=== PATIENT | female | born 1965 | race Caucasian/White ===

== ENCOUNTER 2024-12-11 04:06 | Inpatient (IN) | payer OTHER, SELFPAY ==
[2024-12-10 21:55] VITALS: BMI 31.9
[2024-12-10 22:00] VITALS: BP 158/96
--- NOTE | 2024-12-10 22:14 | ED.GENMED ---
History of Present Illness
General
Chief Complaint: Abdominal Pain
Source: patient and spouse
Exam Limitations: none
Time Seen by Provider: 12/10/24 21:59
Nursing documentation reviewed up to this point in time: agreed with
History of Present Illness
History of Present Illness:
59-year-old female presents emergency department due to lower abdominal pain that began earlier this afternoon. Her pain got worse and she had a near syncope episode in triage and began vomiting. She has a history of diverticulitis with a
diverticular perforation. Colectomy in the past with reversal.
Past History
Past History
ED Past Medical History: Other (Diverticulitis)
ED Past Surgical History: Bowel resection
Social History
Tobacco: Non-smoker
Personal:
Living: with family
Employment: Employed
Family History
Family History: Other (Noncontributory)
Review of Systems
Review of Systems
Allergies reviewed?: Yes
All Other Systems: Not applicable
Constitutional: Reports no symptoms
EENT: Reports no symptoms
Respiratory: Reports no symptoms
Cardiac: Reports syncope
ABD/GI: Reports abdominal pain and vomiting
: Reports no symptoms
Musculoskeletal: Reports no symptoms
Skin: Reports no symptoms
Neurological: Reports no symptoms
Endocrine: Reports no symptoms
Hematologic/Lymphatic: Reports no symptoms
Psychiatric: Reports no symptoms
Phy Exam
Physical Exam
Physical Exam:
Physical Exam
General: no apparent distress, not acutely ill
Neck: supple. no meningeal signs. normal posterior pharynx
Heart: s1/s2 regular rate and rhythm, no murmur. equal radial
pulses.
HEENT: Pupils equal round reactive to light, EOMI
Lungs: no acute respiratory distress. clear bilaterally
Abdomen: normal bowel sounds. Bilateral lower abdominal tenderness. no CVAT
Neuro: alert and oriented. no focal neurological deficits cranial nerves II through XII intact
Skin: no rash
Psychiatric: well kept. interactive and cooperative
Extremities: no edema. no calf tenderness. negative homans. good distal pulses
Course
Orders/Labs/Results
Orders:
Orders
12/10/24 22:01
Electrocardiogram (*1) Stat
Reason for Study: Abdominal Pain
Cardiac Monitoring- Treatment ONCE
EKG- Treatment ONCE
IV Insert/Care/Rem.- Treatment PRN
Urinalysis Reflex To Culture Urgent
Date Specimen was Collected: 12/11/24
Time Specimen was Collected: 00:27
Pulse Ox/cont/shift [RESP] Stat
Quantity: 1
12/10/24 22:09
Complete Blood Count/With Diff Urgent
Comprehensive Metabolic Panel Urgent
Lipase Urgent
12/10/24 22:13
Iohexol [Omnipaque] See Protocol PO NOW STA
12/10/24 22:15
Morphine Sulfate 4 mg IV NOW STA
Ondansetron Injectable [Zofran] 4 mg IV NOW STA
12/11/24 00:28
Urine Microscopic Reflex Cult Urgent
12/11/24 00:30
CT Abd/pel W Iv And Oral Contr Urgent
Reason For Exam: B/l lr quad abd pain, hx diverticulitis, bowel r/s
12/11/24 00:35
HYDROmorphone [Dilaudid] 0.5 mg IV NOW STA
12/11/24 02:12
HYDROmorphone [Dilaudid] 1 mg IV NOW STA
12/11/24 02:21
NG Tube [GI tube insertion- Treatment] ONCE
Abnormal Lab Results
12/10/24 12/11/24
22:09 00:28
WBC 11.7 H 10^3/uL
(4.8-10.8)
MCH 32.2 H pg
(27.0-31.0)
Abs Immat Gran (auto) 0.1 H 10^3/uL
(0-0.05)
Absolute Neuts (auto) 8.8 H 10^3/uL
(1.4-6.5)
Neutrophils % 75.6 H %
(42.2-75.2)
Lymphocytes % 16.9 L %
(20.5-51.1)
Glucose 158 H mg/dl
(70-99)
Ur Occult Blood Reflex 1+ A
(Negative)
Urine RBC 3-6 A /HPF
(0-2)
Urine Albumin (Reflex) 1+ A
(Neg - Trace)
12/10/24 22:09
12/10/24 22:09
Vital Signs
Initial and Last Documented VS:
Initial Vital Signs
Temp Pulse Resp Pulse Ox
97.8 F 78 16 98
12/10/24 21:40 12/10/24 21:40 12/10/24 21:40 12/10/24 21:40
Last Documented Vital Signs
Temp Pulse Resp BP Pulse Ox
97.8 F 79 13 152/94 96
12/10/24 21:40 12/11/24 01:00 12/11/24 01:00 12/11/24 00:00 12/11/24 00:30
MDM/Problems Addressed
Differential Diagnosis Includes:
Small bowel obstruction, diverticulitis
MDM/Problems Addressed:
59-year-old female with small bowel obstruction. Notified Dr. Lopez, general surgery and hospitalist for admission.
Chronic conditions affecting care: Other (Diverticulitis)
Acute Exacerbation and/or Progression of Chronic Illness: Previous abdomnial surgery (Prior colostomy)
*Radiology
Radiology exam reviewed: preliminary read by ED provider (CT scan shows small bowel obstruction) and radiology read reviewed (CT scan shows small bowel obstruction)
*Pulse Oximetry
Patient hypoxic: no
*EKG
Interpreted by ED Provider?: Yes
EKG Intrepretation Date: 12/11/24
EKG Intrepretation Time: 22:38
Interpretation: normal
Comparison EKG: changes noted
Heart Rate: 70
Rate: normal
Rhythm: sinus
Peel: normal axis
Interval: normal interval
QRS Pattern: normal QRS
Ischemia: non-specific ST changes
*Chinese Herbalist Interpretation
Rate: normal
Interpretation: normal
Heart Rate: 70
Rhythm: sinus
*Critical Care Note
Total Time (30-74mins, 75-104mins- exclusive of procedures): Not Applicable
Data Reviewed
Review of Other/Old Records Reveals: Labs
Patient Management
Social determinants of health affecting care: Living situation
Discussion with other providers: Hospitalist and [facility] (general surgery)
Escalation/DeEscalation of care consider admission/obs:
admit indicated
ED Attending Note
-
Portions of this chart may have been created with voice recognition software.� Occasional wrong word or��sound alike� substitutions may have occurred due to the inherent limitations of voice recognition software.
Discharge Plan
Departure
Patient Disposition: Admit
Date of Disposition: 12/11/24
Time of Disposition: 02:19
Admit to: Med/Surg
Presentation/result/management discussed w/ accepting MD/DO: Hospitalist
Patient with high blood pressure during this ER visit?: Yes
Condition: Fair
Discharge Problem:
Small bowel obstruction
Prescriptions:
No Action
L.acidoph,paracasei,B.animalis 1 EACH capsule
2 tab PO DAILY
fluoxetine 20 MG capsule
20 mg PO DAILY
Apple Cider Vinegar Gummie
1 gum PO DAILY
Hair,Nail & Skin Gummie
1 gum PO DAILY
Multivitamin
2 tab PO DAILY
Psyllium Husk
500 mg PO DAILY
melatonin-pyridoxine (vit B6) [Melatonin (with B6)] 1 EACH tablet
5 mg PO PRN PRN (Reason: insomnia)
acetaminophen 325 MG tablet
650 mg PO Q4HPRN PRN (Reason: mild pain) Qty: 1 0RF
polyethylene glycol 3350 17 GRAMS powder in packet
17 grams PO DAILYPRN PRN (Reason: constipation) Qty: 1 0RF
ibuprofen 200 MG tablet
400 mg PO Q6HPRN PRN (Reason: moderate pain) Qty: 1 0RF
Referrals:
UNKNOWN - PT DOES,NOT KNOW [Family Provider] -
Interventions
Interventions:
*Risk Screen - Suicide Last Done: 12/10/24 21:40
*General Assessment Last Done: 12/10/24 21:40
*Neglect/Abuse Screening Last Done: 12/10/24 21:40
*ED- Fall Risk Assessment Last Done: 12/10/24 21:55
*ED COVID-19 Vaccine History Last Done: 12/10/24 21:55
ZJ-Dlcdlr-Ekdzicsmil Assessment Last Done: 12/10/24 21:55
Discharge Date and Time
Print Language: SERBIAN
[2024-12-10 22:21] LABS: % Basophils 0.8 % (0-2); % Eosinophils 1.2 % (0-6); % Immature Granulocytes 0.4 % (0-0.5); % Lymphocytes 16.9 % (20.5-51.1); % Monocytes 5.1 % (1.7-9.3); % Neutrophils 75.6 % (42.2-75.2); Absolute Basophils 0.1 10^3/uL (0-0.2); Absolute Eosinophils 0.1 10^3/uL (0-0.7); Absolute Immature Granulocytes 0.1 10^3/uL (0-0.05); Absolute Monocytes 0.6 10^3/uL (0.1-0.6); Absolute Neutrophils 8.8 10^3/uL (1.4-6.5); Hematocrit 40.3 % (37.0-47.0); Hemoglobin 13.9 g/dL (12.0-16.0); Mean Corp Hgb Conc. 34.5 g/dL (33.0-37.0); Mean Corpuscular Hgb 32.2 pg (27.0-31.0); Mean Corpuscular Volume 93.3 fL (81.0-99.0); Mean Platelet Volume 9.7 fL (7.4-10.4); Nucleated Red Blood Cells % 0 %; Platelet Count 257 10^3/uL (130-400); Red Blood Cell Count 4.32 10^6/uL (4.20-5.40); Red Cell Dist. Width 13.1 % (11.5-14.5); White Blood Cell Count 11.7 10^3/uL (4.8-10.8)
[2024-12-10 22:38] LABS: ALT (SGPT) 26 U/L (0-35); AST (SGOT) 24 U/L (14-36); Albumin 4.2 g/dl (3.5-5.0); Alkaline Phosphatase 52 U/L (38-126); Blood Urea Nitrogen 16 mg/dl (7-17); Calcium 10.2 mg/dl (8.4-10.2); Carbon Dioxide 29 mmol/L (22-30); Chloride 103 mmol/L (98-107); Estimated Creatinine Clearance 116 ml/min; Glucose 158 mg/dl (70-99); Lipase 74 U/L (23-300); Potassium 3.9 mmol/L (3.5-5.1); Sodium 137 mmol/L (135-145); Total Bilirubin 0.6 mg/dl (0.2-1.3); Total Protein 7.3 g/dl (6.3-8.2); eGFR > 60.00
[2024-12-10] MEDS: OMNIPAQUE 50 ML PO (22:38)
[2024-12-10] MEDS: MORPHINE SULFATE 4 MG IV (22:38)
[2024-12-10] MEDS: ZOFRAN 4 MG IV (22:38)
[2024-12-10 23:00] VITALS: BP 102/70
[2024-12-11] VITALS (9 sets, daily range): BP systolic 114–159; BP diastolic 68–99; BMI 30.9
[2024-12-11] MEDS: DILAUDID 0.5 MG IV ×3 (00:37→18:17)
[2024-12-11 00:45] LABS: Urine Albumin 1+ (Neg - Trace); Urine Bilirubin Negative (Negative); Urine Character Slightly Cloudy (Clear); Urine Color Yellow; Urine Glucose Negative (Negative); Urine Ketone Negative (Negative); Urine Leukocyte Negative (Negative); Urine Nitrite Negative (Negative); Urine Occult Blood 1+ (Negative); Urine Specific Gravity 1.015 (<1.030); Urine Urobilinogen Negative (Neg - 1+)
[2024-12-11 01:10] LABS: Urine White Cell 0-2 /HPF (0-5)
[2024-12-11] MEDS: DILAUDID 1 MG IV ×3 (02:16→23:05)
--- NOTE | 2024-12-11 04:04 | HPS.HSE ---
Family Physician
-
Family Physician: NOT KNOW UNKNOWN - PT DOES
Chief Complaint
-
Abdominal pain
History of Present Illness
This is a 59-year-old female with past medical history of diverticulitis with perforated bowel resulting in multiple abdominal surgeries seen in 2017 and 2018 who presents to the emergency department with concern for abdominal obstruction.
Patient reports acute onset of diffuse abdominal pain. She went prior to the onset of pain she was having regular bowel movements. And despite the pain she was still passing some gas. She denies any fevers or chills. She denies any vomiting.
She has not had any diarrhea. Patient denies any prior history of bowel obstruction. She denies alcohol use. She denies history of hepatitis.
Intermittent department she was found to have a small bowel obstruction on CT scan.
She was normotensive with a blood pressure of 152/90, pulse of 79 and temp of 97.8. ECG showed a normal sinus rhythm at a rate of 85. UA was unremarkable.
She had a white count 11.7, rest of the CBC was unremarkable. Electrolytes BUN/creatinine were normal. LFTs, lipase was within normal range.
CT scan of the abdomen pelvis showed dilated proximal to mid small bowel loops with air-fluid and inherent contrast levels measuring up to 3.2 cm, transition point in the anterior left lower quadrant. Which the small bowel is mostly decompressed.
CT suggestive of high-grade small bowel obstruction. Surgical changes of partial colectomy with anastomosis in the pelvis with mild colonic diverticulosis noted. Normal appendix.
Medical History
Past Medical History
Past Medical History: Reports Other (Diverticulitis)
Past Surgical History: Reports Bowel Resection (Expiratory laparotomy, abdominal washout 2016, sigmoidectomy with colostomy creation 2016, Endcolostomy takedown, lysis of adhesions 2018, laparoscopic incisional hernia repair with mesh 2019)
Social History
Tobacco: Non-smoker
Alcohol: Occasional
Drug: None
Personal:
Living: With Family
Employment: Employed
Family History
Family History: Not pertinent
Allergies / Home Medications
Allergies reflects when Allergies were last updated in [facility].
Home Medications with original date entered in [facility]
Allergy/Medication List:
Allergies
Allergy/AdvReac Type Severity Reaction Status Date / Time
No Known Drug Allergies Allergy Unknown Verified 03/05/20 06:29
seasonal Allergy Unknown Itching Uncoded 03/05/20 06:29
eyes,
sneezing
Home Medications
L.acidoph,paracasei,B.animalis 10 billion cell capsule 2 tab PO DAILY Supplement 07/17/17
fluoxetine 20 mg capsule 20 mg PO DAILY Mental health 01/04/18
Apple Cider Vinegar Gummie 1 gum PO DAILY Supplement 03/04/20
Hair,Nail & Skin Gummie 1 gum PO DAILY Supplement 03/04/20
Multivitamin 2 tab PO DAILY Supplement 03/04/20
Psyllium Husk 500 mg PO DAILY Constipation 03/04/20
melatonin 5 mg-pyridoxine (vitamin B6) 1 mg tablet (Melatonin (with B6)) 5 mg PO PRN PRN insomnia 03/04/20
acetaminophen 325 mg tablet 650 mg (2 x 325 mg) PO Q4HPRN PRN mild pain #1 tab 03/08/20
ibuprofen 200 mg tablet 400 mg (2 x 200 mg) PO Q6HPRN PRN moderate pain #1 tab 03/08/20
polyethylene glycol 3350 17 gram oral powder packet 17 grams PO DAILYPRN PRN constipation #1 packet 03/08/20
Review of Systems
-
History Source: Patient
Constitutional: Reports No Symptoms
EENT: Reports No Symptoms
Respiratory: Reports No Symptoms
Cardiac: Reports No Symptoms
Abdomen/GI: Reports Abdominal Pain
: Reports No Symptoms
Musculoskeletal: Reports No Symptoms
Skin: Reports No Symptoms
Neurological: Reports No Symptoms
Endocrine: Reports No Symptoms
Hematologic/Lymphatic: Reports No Symptoms
Psych: Reports No Symptoms
Physical Exam
Vital Signs
Vital Signs
Temp Pulse Resp BP Pulse Ox
97.8 F 79 13 152/94 96
12/10/24 21:40 12/11/24 01:00 12/11/24 01:00 12/11/24 00:00 12/11/24 00:30
Physical Exam
General: Well Developed, Well Nourished and No Apparent Distress
HEENT: NormoCephalic, Moist mucous membranes, Atraumatic and Other (NG tube in place, draining straw-colored fluid (contrast material))
Respiratory: Clear
Cardiac: S1/S2 and Regular Rhythm; No Murmur or Rub
GI: Soft, Non Tender, Non Distended and Normal Bowel Sounds; No Organomegaly
Rectal: Deferred by Provider
Genito-urinary: Deferred by me
Musculoskeletal: No Clubbing, No Cyanosis and No Edema
Skin: No Rash
Neuro: AO x 3 and Nonfocal/grossly intact
Hematologic/Lymphatic: No Lymphadenopathy
Psych: Calm
Laboratory Results
-
12/10/24 22:09
12/10/24 22:09
Laboratory Results
Total Bilirubin 0.6 mg/dl (0.2-1.3) 12/10/24 22:09
AST 24 U/L (14-36) 12/10/24 22:09
ALT 26 U/L (0-35) 12/10/24 22:09
Alkaline Phosphatase 52 U/L (38-126) 12/10/24 22:09
Lipase 74 U/L (23-300) 12/10/24 22:09
Data Reviewed
-
CT Scan: Report Reviewed by me
Medical Tests (Nuc Med, Echo, EKG etc): Image Personally Visualized and interpreted
Lab Data: Labs Reviewed by me
Old Records: Reviewed
Impression/Plan
-
IMPRESSION:
59-year-old female with past surgical history of diverticulitis with perforation requiring ex lap and abdominal washout. She has had sigmoidectomy with colostomy creation and then had delayed abdominal closure, and colostomy takedown with lysis of
adhesions and laparoscopic incisional hernia repair. She had abdominal pain and found to have small bowel obstruction in the ED likely on the basis of adhesions. She has a high-grade obstruction noted on the CT scan. No infectious process. NG
tube placed in the ED.
PLAN:
Small bowel obstruction
� Admit to MedSurg
� NG tube to low intermittent suction
� N.p.o.
� Antiemetics, pain control
� IV fluids
� Serial examinations
� Surgical consult
DVT prophylaxis�Lovenox subcutaneous
CODE STATUS�full code
[2024-12-11] MEDS: D5LR 1000 IV (06:18)
--- NOTE | 2024-12-11 06:38 | PTCARENOTE ---
Received patient from ED via stretcher. Patient ambulated from stretcher to bed independently. Patient reports 8/10 pain throughout abdomen, mostly in left lower quadrant. PRN IV dilaudid given as ordered. NGT hooked to LIWS. Oriented patient to
room and placed call escobedo within reach.
[2024-12-11] MEDS: TORADOL 15 MG IV ×3 (07:37→19:37)
--- NOTE | 2024-12-11 10:31 | CM ---
Patient off the flr for imaging. Spoke w/ spouse, initial assessment completed. Patient is a 59-year-old female with past medical history of diverticulitis with perforated bowel resulting in multiple abdominal surgeries seen in 2017 and 2018 who
presents to the emergency department with concern for abdominal obstruction.
Patient resides w/ spouse in a 2STH- no steps. Independent w/ ambulating and ADLs, no DME. No SNF/HC hx reported.
Address, point of contact and insurance verified
PCP: Karla Corona
Pharmacy: [facility]
Plan: Home, no needs anticipated
--- NOTE | 2024-12-11 11:32 | W.PN.UPDATE ---
Update Note
Progress Note Update
Admitted early as of morning for acute abdominal pain secondary to small bowel obstruction. NG tube in place. She feels improved with regards to abdominal pain. No nausea. She passed gas 3 times today. No bowel movement yet. Abdomen soft but
she has some tenderness in the left lower quadrant area.
Await surgical input. Continue with NG tube to suction. Follow-up abdominal x-ray.
--- NOTE | 2024-12-11 14:14 | CON.GS ---
Consultation
-
Date/Time Consultation Performed: 12/11/24
Requesting Provider: Osmar
Performing Provider: Jessica
Reason for Consultation: SBO
Medical History
-
Chief Complaint: Abd pain
History of Present Illness:
59F with acute onset LLQ abd pain that began yesterday. She denies dietary indiscretion. Developed diffuse severe abd pain that has since improved but is now more localized to LLQ. She is passing flatus. Her pain is improved this am. She denies n/v
with NGT to suction. Denies f/c. Never had this issue today.
Past Medical History
Past Medical History: Other (diverticulitis)
Past Surgical History: Other (Hartmanns c/b post opsepsis with RTOR for ex lap and washout 2016, End colostomy takedown with MARQUEZ 2018, laparoscopic RR incisional hernia repair with phasix and [id number])
Social History
Tobacco: Non-Smoker
Alcohol: Occasional
Drug: None
Personal:
Living: With Family
Employment: Employed
Family History
Family History: Reviewed & Noncontributory
Allergies / Home Medications
Allergy/AdvReac Type Severity Reaction Status Date / Time
No Known Drug Allergies Allergy Unknown Verified 03/05/20 06:29
seasonal Allergy Unknown Itching Uncoded 03/05/20 06:29
eyes,
sneezing
�Medication �Instructions �Recorded �Confirmed �Type
L.acidoph,paracasei,B.animalis 10 2 tab PO DAILY Supplement 07/17/17 03/05/20 History
billion cell capsule
fluoxetine 20 mg capsule 20 mg PO DAILY Mental health 01/04/18 03/05/20 History
Apple Cider Vinegar Gummie 1 gum PO DAILY Supplement 03/04/20 03/05/20 History
Hair,Nail & Skin Gummie 1 gum PO DAILY Supplement 03/04/20 03/05/20 History
Multivitamin 2 tab PO DAILY Supplement 03/04/20 03/05/20 History
Psyllium Husk 500 mg PO DAILY Constipation 03/04/20 03/05/20 History
melatonin 5 mg-pyridoxine (vitamin 5 mg PO PRN PRN insomnia 03/04/20 03/05/20 History
B6) 1 mg tablet (Melatonin (with
B6))
acetaminophen 325 mg tablet 650 mg (2 x 325 mg) PO Q4HPRN PRN 03/08/20 Rx
mild pain #1 tab
ibuprofen 200 mg tablet 400 mg (2 x 200 mg) PO Q6HPRN PRN 03/08/20 Rx
moderate pain #1 tab
polyethylene glycol 3350 17 gram 17 grams PO DAILYPRN PRN 03/08/20 Rx
oral powder packet constipation #1 packet
Review of Systems
-
A 10 point review of systems was completed, and was negative except as per HPI.
Physical Exam
Vital Signs
Temp Pulse Resp BP Pulse Ox
98.2 F 71 16 138/77 93
12/11/24 07:40 12/11/24 07:40 12/11/24 07:40 12/11/24 07:40 12/11/24 09:00
12/10/24 12/11/24 12/12/24
06:59 06:59 06:59
Actual Weight 89.528 kg
Body Mass Index (BMI) 30.9
Lab Results
12/10/24 22:09
12/10/24 22:09
WBC 11.7 10^3/uL (4.8-10.8) H 12/10/24 22:09
Hgb 13.9 g/dL (12.0-16.0) 12/10/24 22:09
Hct 40.3 % (37.0-47.0) 12/10/24 22:09
Plt Count 257 10^3/uL (130-400) 12/10/24 22:09
Abs Immat Gran (auto) 0.1 10^3/uL (0-0.05) H 12/10/24 22:09
Neutrophils % 75.6 % (42.2-75.2) H 12/10/24 22:09
Physical Exam
General: Well Developed, Well Nourished and No Apparent Distress
GI: Soft, Tender (mild, mostly LLQ) and Distended (mild)
Skin: Warm and Dry
Neuro: AO x 3
Psych: Calm
Data Reviewed
-
Radiology: Image Personally Visualized and interpreted, Report Reviewed by me and Discussed with Nurse
CT Scan: Image Personally Visualized and interpreted, Report Reviewed by me and Discussed with Patient
Labs: Labs Reviewed by me
Old Records: Reviewed
Assessment / Plan
-
59F with pSBO, 2/2 adhesions, likely resolving
AFVSS, pain improved, low NG output, light yellow fluid
Abd soft, mild ttp LLQ
Mild leukocytosis noted
CT A/P with dilated sb loops, appears to be transition point LLQ anterior; no PV gas, no pneumatosis, no free air
F/U KUB with mildly dilated sb loops, contrast in colon
Plan:
Cont NGT/IVF/NPO today
If continues passing flatus, clamp trial tomorrow
DVT ppx
All other care as per primary team
[2024-12-11] MEDS: LOVENOX 30 MG SC (18:16)
[2024-12-12] MEDS: D5LR 1000 IV ×2 (00:22→12:29)
[2024-12-12] MEDS: TORADOL 15 MG IV ×3 (01:59→18:42)
[2024-12-12] MEDS: DILAUDID 0.5 MG IV ×4 (04:18→22:14)
[2024-12-12 07:30] VITALS: BP 129/79
[2024-12-12 08:55] LABS: Hematocrit 34.6 % (37.0-47.0); Hemoglobin 11.6 g/dL (12.0-16.0); Mean Corp Hgb Conc. 33.5 g/dL (33.0-37.0); Mean Corpuscular Hgb 32.1 pg (27.0-31.0); Mean Corpuscular Volume 95.8 fL (81.0-99.0); Mean Platelet Volume 9.8 fL (7.4-10.4); Platelet Count 185 10^3/uL (130-400); Red Blood Cell Count 3.61 10^6/uL (4.20-5.40); Red Cell Dist. Width 13.2 % (11.5-14.5); White Blood Cell Count 5.9 10^3/uL (4.8-10.8)
[2024-12-12 08:59] LABS: Blood Urea Nitrogen 17 mg/dl (7-17); Calcium 8.9 mg/dl (8.4-10.2); Carbon Dioxide 31 mmol/L (22-30); Chloride 103 mmol/L (98-107); Estimated Creatinine Clearance 115 ml/min; Glucose 113 mg/dl (70-99); Magnesium 1.8 mg/dl (1.6-2.3); Potassium 4.2 mmol/L (3.5-5.1); Sodium 136 mmol/L (135-145); eGFR > 60.00
--- NOTE | 2024-12-12 09:19 | W.PN.GS2 ---
Addendum entered and electronically signed by Jered Cameron MD 12/12/24 16:29:
Patient seen and examined.
Feels improved. Less abdominal discomfort and bloating. No nausea or vomiting. Reports passing flatus, no BM. Afebrile. Ambulating.
Gen: NAD
HEENT:
Abd: soft, mild tenderness, mild/moderate distension, tympany, non-peritoneal
Patient is a 59 yo F with p/w SBO likely secondary to adhesions
CT A/P (12/12): Dilated loops of small bowel with apparent transition point within the left anterior lateral pelvis, no signs of bowel ischemia or free air
Abdominal x-ray (12/12): Dilated loops of small bowel, contrast progression into the RIGHT and transverse colon
AVSS
Labs notable for normalization of WBC, and normal renal function
Signs of clinical improvement with passage of flatus and repeat abdominal x-ray with contrast progression into the colon. Continue with medical management. No plans or indication for surgical intervention at this time.
-- Clamp NG tube
-- NPO, IVF
-- OOB/ambulate, correct lytes, minimize narcotics
Original Note:
Today's Communication / Plan
-
XR
Assessment / Plan
-
59 yo female with a h/o Hartmanns with RTOR for ex lap and washout 2016, End colostomy takedown with MARQUEZ 2018, laparoscopic RR incisional hernia repair with phasix and abdominoplasty 2019 presenting with pSBO.
Continues to pass flatus but still with abdominal distention/discomfort although improving
NGT with 550 bilious output overnight
Leukocytosis resolved
Afebrile, stable vital signs
--XR abd
--NGT to LIWS for now, anticipate clamp trial vs removal today vs tomorrow if continues to improve
--C/W IVF
--Analgesics/antiemetics prn
Subjective Data
-
Date of Service: December 12, 2024
Patient seen and examined at bedside. Denies n/v. Feels better today. Some pain still to lower abdomen. No active nausea. No vomiting. Passing a good deal of flatus.
Objective Data
-
Intake and Output
12/11/24 12/12/24 12/13/24
06:59 06:59 06:59
Intake Total 1080 / 1080
Output Total 550 / 550
Balance 530 / 530
Intake:
IV fluids (Total) 900 / 900
Amount instilled into GI Tube ( 180 / 180
Total)
[place] Sump 180 / 180
Output:
Gastrointestinal tube output ( 550 / 550
Total)
[place] Sump 550 / 550
Other:
Number of approximated MODERATE 1 1
amounts of urine
Vital Signs
Temp Pulse Resp BP Pulse Ox
98.1 F 70 18 129/79 95
12/12/24 07:30 12/12/24 07:30 12/12/24 07:30 12/12/24 07:30 12/12/24 08:15
Lab Results
12/12/24 08:19
12/12/24 08:19
Calcium 8.9 mg/dl (8.4-10.2) 12/12/24 08:19
Magnesium 1.8 mg/dl (1.6-2.3) 12/12/24 08:19
Total Bilirubin 0.6 mg/dl (0.2-1.3) 12/10/24 22:09
AST 24 U/L (14-36) 12/10/24 22:09
ALT 26 U/L (0-35) 12/10/24 22:09
Alkaline Phosphatase 52 U/L (38-126) 12/10/24 22:09
Total Protein 7.3 g/dl (6.3-8.2) 12/10/24 22:09
Albumin 4.2 g/dl (3.5-5.0) 12/10/24 22:09
Physical Exam
-
NAD
ABD softly distended, minimal tenderness to lower abdomen, HUMAN SERVICE SPECIALIST
NGT with light bilious outputs
--- NOTE | 2024-12-12 10:44 | PTCARENOTE ---
NG tube irrigated and pain meds given without incident.
--- NOTE | 2024-12-12 13:13 | PTCARENOTE ---
Rcvd order to clamp NG tube. Clamped at 1315. Advised PT to ring miguel angel escobedo if she feels nauseous.
--- NOTE | 2024-12-12 14:09 | W.PN.HOSP.TC ---
Today's Communication/Plan
-
CW NG tube to suction per sx
CW IV fluids
Assessment / Plan
Assessment / Plan
IMPRESSION:
59-year-old female with past surgical history of diverticulitis with perforation requiring ex lap and abdominal washout. She has had sigmoidectomy with colostomy creation and then had delayed abdominal closure, and colostomy takedown with lysis of
adhesions and laparoscopic incisional hernia repair. She had abdominal pain and found to have small bowel obstruction in the ED likely on the basis of adhesions. She has a high-grade obstruction noted on the CT scan. No infectious process. NG
tube placed in the ED.
PLAN:
Small bowel obstruction -possibly PSBO
� Improved symptoms. Contrast moved to the right side of the colon.
� NG tube to low intermittent suction
� N.p.o.
� Antiemetics, pain control
� IV fluids
� Serial examinations
� Surgery following.
DVT prophylaxis�Lovenox subcutaneous
CODE STATUS�full code
Anticipated Discharge: > 48 hours
Subjective/Interval History
-
Date of Service: December 12, 2024
Patient still with NG tube. No nausea now. Improved abdominal pain and requiring less of IV pain medication. Passing gas but no bowel movement.
No fever or chills.
Denies shortness of breath. No dizziness.
Objective Data
-
Labs:
Laboratory Results
12/12/24
08:19
WBC 5.9
Hgb 11.6 L
Hct 34.6 L
Plt Count 185 D
Sodium 136
Potassium 4.2
Chloride 103
Carbon Dioxide 31 H
BUN 17
Creatinine 0.6
Glucose 113 H
Calcium 8.9
Vital Signs:
Vital Signs
Temp Pulse Resp BP Pulse Ox
98.1 F 70 18 129/79 95
12/12/24 07:30 12/12/24 07:30 12/12/24 07:30 12/12/24 07:30 12/12/24 08:15
I&O
12/11/24 12/12/24 12/13/24
06:59 06:59 06:59
Intake Total 1080 / 1080
Output Total 550 / 550
Balance 530 / 530
Physical Exam
-
General: Comfortable
Respiratory: Non Labored Respirations; Negative Accessory Resp Muscle Use
Cardiac: Regular Rhythm and S1/S2
GI: Soft, Nontender, Nondistended, Normal Bowel Sounds and Other (NG in place -550ml )
Neuro: AO x 3
Data Reviewed
-
Labs: Labs Reviewed by me
[2024-12-12 16:08] VITALS: BP 134/83
[2024-12-12] MEDS: LOVENOX 30 MG SC (18:42)
[2024-12-12 23:52] VITALS: BP 142/83
[2024-12-13] MEDS: D5LR IV ×2 (00:22→22:07)
[2024-12-13] MEDS: TORADOL 15 MG IV ×3 (03:44→16:39)
[2024-12-13 08:09] VITALS: BP 165/99
[2024-12-13 09:02] LABS: Hematocrit 36.1 % (37.0-47.0); Hemoglobin 12.3 g/dL (12.0-16.0); Mean Corp Hgb Conc. 34.1 g/dL (33.0-37.0); Mean Corpuscular Hgb 32.1 pg (27.0-31.0); Mean Corpuscular Volume 94.3 fL (81.0-99.0); Mean Platelet Volume 10.2 fL (7.4-10.4); Platelet Count 195 10^3/uL (130-400); Red Blood Cell Count 3.83 10^6/uL (4.20-5.40); Red Cell Dist. Width 12.6 % (11.5-14.5); White Blood Cell Count 7.1 10^3/uL (4.8-10.8)
[2024-12-13 09:34] LABS: Blood Urea Nitrogen 11 mg/dl (7-17); Calcium 9.5 mg/dl (8.4-10.2); Carbon Dioxide 32 mmol/L (22-30); Chloride 105 mmol/L (98-107); Estimated Creatinine Clearance 115 ml/min; Glucose 105 mg/dl (70-99); Potassium 3.9 mmol/L (3.5-5.1); Sodium 140 mmol/L (135-145); eGFR > 60.00
--- NOTE | 2024-12-13 09:55 | W.PN.GS2 ---
Addendum entered and electronically signed by Jered Cameron MD 12/13/24 12:14:
Patient seen and examined.
No complaints. Denies worsening abdominal pain, does report a second episode of crampy abdominal discomfort in the evening with walking, but states that this has subsequently resolved. No nausea or vomiting with NGT clamped. Afebrile. Continues
to pass flatus, no BM.
Gen: NAD
Abd: soft, NT, mild distension, tympany, non-peritoneal
Patient is a 59 yo F with p/w SBO likely secondary to adhesions
CT A/P (12/12): Dilated loops of small bowel with apparent transition point within the left anterior lateral pelvis, no signs of bowel ischemia or free air
Abdominal x-ray (12/12): Dilated loops of small bowel, contrast progression into the RIGHT and transverse colon
AVSS
Labs notable for normalization of WBC, and normal renal function
Signs of clinical improvement with passage of flatus and repeat abdominal x-ray with contrast progression into the colon. Continue with medical management. No plans or indication for surgical intervention at this time.
-- DC NGT
-- Trial of clears
-- IVF until adequate PO intake
-- OOB/ambulate, correct lytes, minimize narcotics
Original Note:
Today's Communication / Plan
-
d/c ngt
trial of clears
Assessment / Plan
-
59 yo female with a h/o Hartmanns with RTOR for ex lap and washout 2016, End colostomy takedown with MARQUEZ 2018, laparoscopic RR incisional hernia repair with phasix and abdominoplasty 2019 presenting with pSBO.
Continues to pass flatus but still with some abdominal distention/discomfort although improving
Tolerated NGT clamp trial without worsening symtpoms
Leukocytosis resolved
Afebrile, stable vital signs
--D/C NGT
--Trial of clears
--C/W IVF
--Analgesics/antiemetics prn
Subjective Data
-
Date of Service: December 13, 2024
Patient seen and examined at bedside with Dr. Cameron. Denies n/v. Tolerating clamp trial of NGT. Passing flatus, no stools as of yet. Some lower abdominal soreness last night, but improved overall.
Objective Data
-
Intake and Output
12/12/24 12/13/24 12/14/24
06:59 06:59 06:59
Intake Total 1080 / 1080
Output Total 550 / 550
Balance 530 / 530
Intake:
IV fluids (Total) 900 / 900
Amount instilled into GI Tube ( 180 / 180
Total)
[place] Sump 180 / 180
Output:
Gastrointestinal tube output ( 550 / 550
Total)
[place] Sump 550 / 550
Other:
Number of approximated MODERATE 1 3
amounts of urine
Vital Signs
Temp Pulse Resp BP Pulse Ox
98.5 F 68 18 165/99 96
12/13/24 08:09 12/13/24 08:09 12/13/24 08:09 12/13/24 08:09 12/13/24 08:09
Lab Results
12/13/24 08:35
12/13/24 08:35
Calcium 9.5 mg/dl (8.4-10.2) 12/13/24 08:35
Magnesium 1.8 mg/dl (1.6-2.3) 12/12/24 08:19
Total Bilirubin 0.6 mg/dl (0.2-1.3) 12/10/24 22:09
AST 24 U/L (14-36) 12/10/24 22:09
ALT 26 U/L (0-35) 12/10/24 22:09
Alkaline Phosphatase 52 U/L (38-126) 12/10/24 22:09
Total Protein 7.3 g/dl (6.3-8.2) 12/10/24 22:09
Albumin 4.2 g/dl (3.5-5.0) 12/10/24 22:09
Physical Exam
-
NAD
ABD softly distended, minimal tenderness to lower abdomen, CONTROLS TECHNICIAN
NGT clamped
[2024-12-13] MEDS: D5LR 1000 IV (11:47)
--- NOTE | 2024-12-13 13:16 | W.PN.HOSP.TC ---
Today's Communication/Plan
-
Advance diet per surgery
DC planning
Assessment / Plan
Assessment / Plan
IMPRESSION:
59-year-old female with past surgical history of diverticulitis with perforation requiring ex lap and abdominal washout. She has had sigmoidectomy with colostomy creation and then had delayed abdominal closure, and colostomy takedown with lysis of
adhesions and laparoscopic incisional hernia repair. She had abdominal pain and found to have small bowel obstruction in the ED likely on the basis of adhesions. She has a high-grade obstruction noted on the CT scan. No infectious process. NG
tube placed in the ED.
PLAN:
Partial Small bowel obstruction
� Improved symptoms. Contrast moved to the right side of the colon.
� NG tube is out on clear liquids which she is tolerating.
- Advance diet to full liquids if okay with surgery.
DVT prophylaxis�Lovenox subcutaneous
CODE STATUS�full code
Anticipated Discharge: Within 24 hours
Subjective/Interval History
-
Date of Service: December 13, 2024
NG tube is out. She is on clear liquids and had them at 930 and she is doing great without nausea vomiting or abdominal pain. In fact she had a bowel movement today.
Denies fever chills. No shortness of breath or chest pain.
Objective Data
-
Labs:
Laboratory Results
12/13/24
08:35
WBC 7.1
Hgb 12.3
Hct 36.1 L
Plt Count 195
Sodium 140
Potassium 3.9
Chloride 105
Carbon Dioxide 32 H
BUN 11
Creatinine 0.6
Glucose 105 H
Calcium 9.5
Vital Signs:
Vital Signs
Temp Pulse Resp BP Pulse Ox
98.5 F 68 18 165/99 96
12/13/24 08:09 12/13/24 08:09 12/13/24 08:09 12/13/24 08:09 12/13/24 08:09
I&O
12/12/24 12/13/24 12/14/24
06:59 06:59 06:59
Intake Total 1080 / 1080
Output Total 550 / 550
Balance 530 / 530
Physical Exam
-
Respiratory: Non Labored Respirations; Negative Accessory Resp Muscle Use
Cardiac: Regular Rhythm and S1/S2
GI: Soft, Nontender, Nondistended and Normal Bowel Sounds
Data Reviewed
-
Labs: Labs Reviewed by me
--- NOTE | 2024-12-13 13:37 | PTCARENOTE ---
Removed NG tube per orders this am.
[2024-12-13 16:16] VITALS: BP 146/80
[2024-12-13] MEDS: LOVENOX 30 MG SC (16:40)
[2024-12-13 23:22] VITALS: BP 165/99
[2024-12-14] MEDS: DILAUDID 0.5 MG IV (00:17)
[2024-12-14 07:35] VITALS: BP 143/89
--- NOTE | 2024-12-14 10:09 | W.PN.GS2 ---
Addendum entered and electronically signed by Jered Cameron MD 12/14/24 13:45:
Patient seen and examined.
Feels improved, less pain and distention. Passing flatus and BM yesterday. No nausea or vomiting. Afebrile. Ambulating.
Gen: NAD
Abd: soft, NT, NT, non-peritoneal (improved)
Patient is a 59 yo F with a p/w adhesive SBO in the setting of a h/o Hartmanns with RTOR for ex lap and washout 2016, End colostomy takedown with MARQUEZ 2018, laparoscopic RR incisional hernia repair with phasix and abdominoplasty 2019
AVSS
WBC normal
Clinical and radiographic improvement, tolerating dietary advancement
--LRD
--OK for DC later today if tolerating diet
Discussed case with patient's Hospitalist
Original Note:
Today's Communication / Plan
-
LRD, dispo planning
Assessment / Plan
-
59 yo female with a h/o Hartmanns with RTOR for ex lap and washout 2016, End colostomy takedown with MARQUEZ 2018, laparoscopic RR incisional hernia repair with phasix and abdominoplasty 2019 presenting with pSBO.
Continues to improve with +flatus/BM
No n/v with dietary advancements
Afebrile, stable vital signs
--Advance to LRD
--Analgesics/antiemetics prn
--Ok for d/c later today if tolerating diet
Discussed case with patient's hospitalist
Subjective Data
-
Date of Service: December 14, 2024
Patient seen and examined at bedside with Dr. Cameron. Feeling better overall. Occasional lower abdominal cramping but better. Passing flatus. Had a BM yesterday. No N/V with dietary advancements.
Objective Data
-
Intake and Output
12/13/24 12/14/24 12/15/24
06:59 06:59 06:59
Intake Total 480 / 480
Balance 480 / 480
Intake:
Oral fluids 480 / 480
Other:
Number of approximated MODERATE 3 3
amounts of urine
Vital Signs
Temp Pulse Resp BP Pulse Ox
98.4 F 72 18 143/89 96
12/14/24 07:35 12/14/24 07:35 12/14/24 07:35 12/14/24 07:35 12/14/24 07:35
Lab Results
12/13/24 08:35
12/13/24 08:35
Calcium 9.5 mg/dl (8.4-10.2) 12/13/24 08:35
Magnesium 1.8 mg/dl (1.6-2.3) 12/12/24 08:19
Total Bilirubin 0.6 mg/dl (0.2-1.3) 12/10/24 22:09
AST 24 U/L (14-36) 12/10/24 22:09
ALT 26 U/L (0-35) 12/10/24 22:09
Alkaline Phosphatase 52 U/L (38-126) 12/10/24 22:09
Total Protein 7.3 g/dl (6.3-8.2) 12/10/24 22:09
Albumin 4.2 g/dl (3.5-5.0) 12/10/24 22:09
Physical Exam
-
NAD
ABD ND, NT, DEPARTMENT ASSISTANT
--- NOTE | 2024-12-14 12:16 | W.PN.HOSP.TC ---
Today's Communication/Plan
-
dc
Assessment / Plan
Assessment / Plan
IMPRESSION:
59-year-old female with past surgical history of diverticulitis with perforation requiring ex lap and abdominal washout. She has had sigmoidectomy with colostomy creation and then had delayed abdominal closure, and colostomy takedown with lysis of
adhesions and laparoscopic incisional hernia repair. She had abdominal pain and found to have small bowel obstruction in the ED likely on the basis of adhesions. She has a high-grade obstruction noted on the CT scan. No infectious process. NG
tube placed in the ED.
PLAN:
Partial Small bowel obstruction
� Improved symptoms. Contrast moved to the right side of the colon.
� NG tube is out on full iquids which she is tolerating.
- Advance diet to LR diet and if she tolerates dc home
Anticipated Discharge: Today
Subjective/Interval History
-
Date of Service: December 14, 2024
Tolerating full liquid diet. Diet getting advanced to low residue diet today.
No nausea vomiting. Had bowel movements.
No fever chills.
No shortness of breath no dizziness.
Objective Data
-
Vital Signs:
Vital Signs
Temp Pulse Resp BP Pulse Ox
98.4 F 72 18 143/89 96
12/14/24 07:35 12/14/24 07:35 12/14/24 07:35 12/14/24 07:35 12/14/24 07:35
I&O
12/13/24 12/14/24 12/15/24
06:59 06:59 06:59
Intake Total 480 / 480
Balance 480 / 480
Physical Exam
-
GI: Soft, Nontender, Nondistended and Normal Bowel Sounds
Neuro: AO x 3
--- NOTE | 2024-12-14 13:00 | CM ---
Chart reviewed, home no needs.
Plan; Home no needs.
[2024-12-14] MEDS: TORADOL 15 MG IV (14:12)
[2024-12-14 14:26] VITALS: BP 156/95
--- NOTE | 2024-12-14 15:00 | PTCARENOTE ---
Pt tolerated low res lunch with minimal abd cramping and denied nausea. IV discontinued. Discharge instructions printed and reviewed with patient who verbalizes understanding. Pt ambulated off the floor with spouse and all belongings from the room.
== END 2024-12-14 14:29 | disposition home or self-care (01) | DRG 390 ==
LOC: 4 EAST ACU 04:06
PROVIDERS: Registered Nurse; ADMITTING PHYSICIAN Internal Medicine; ATTENDING PHYSICIAN Internal Medicine; CONSULT PHYSICIAN Surgery; EMERGENCY PHYSICIAN Emergency Medicine
DX: K56.51 Intestinal adhesions [bands], with partial obstruction (principal); Z79.899 Other long term (current) drug therapy; Z87.19 Personal history of other diseases of the digestive system
CPT/HCPCS: 74018; 74177; 80048; 80053; 81003; 81015; 83690; 83735; 85025; 85027; 93005; Q9967